=== PATIENT | female | born 1985 | race Caucasian/White ===

== ENCOUNTER 2017-03-23 16:25 | Emergency (ER) | payer BC ==
[2017-03-23 16:31] VITALS: BP 111/81; RESP 16; TEMP 97.8; O2SAT 97
[2017-03-23] MEDS ORDERED: Sodium Chloride 0.9% 1,000 ML IV SCH (17:00)
--- NOTE | 2017-03-23 17:16 | ED PDOC ---
HPI: Chest Pain Time Seen by Provider: 03/23/17 16:36 Chief Complaint (Nursing): Palpitations Chief Complaint (Provider): Palpitations History Per: Patient History/Exam Limitations: no limitations Onset/Duration Of Symptoms: Hrs Additional Complaint(s): Patient is a 31 y/o female who presents to the ED complaining of palpitations that began earlier today. Patient reports she was at home today when she felt acute onset of palpitations. She states she thought it was secondary to dehydration because all she had earlier in the day was fruit and coffee. She reports that she began drinking water, but that she got more anxious and had worsening palpitations prompting her to come in to the ED. Patient denies any chest pain, shortness of breath, fever, recent weight loss/gain, urinary symptoms, or any further symptoms. She reports she experienced a similar episode last week. PCP: Mandy Lopes ([facility]) Past Medical History Reviewed: Historical Data, Nursing Documentation, Vital Signs Vital Signs: Last Vital Signs Temp 97.8 F 03/23/17 16:28 Pulse 170 H 03/23/17 18:57 Resp 16 03/23/17 16:28 BP 111/81 03/23/17 16:28 Pulse Ox 97 03/23/17 18:57 - Medical History PMH: No Chronic Diseases - Surgical History Surgical History: No Surg Hx - Family History Family History: States: No Known Family Hx - Social History Current smoker - smoking cessation education provided: No Ex-Smoker (has not smoked in the last 12 months): No Alcohol: None Drugs: Denies - Allergies Allergies/Adverse Reactions: Allergies Allergy/AdvReac Type Severity Reaction Status Date / Time acetaminophen [From NyQuil] Allergy SHORTNESS Verified 03/23/17 16:32 OF BREATH dextromethorphan Allergy SHORTNESS Verified 03/23/17 16:32 [From NyQuil] OF BREATH doxylamine [From NyQuil] Allergy SHORTNESS Verified 03/23/17 16:32 OF BREATH pseudoephedrine [From NyQuil] Allergy SHORTNESS Verified 03/23/17 16:32 OF BREATH Review of Systems ROS Statement: Except As Marked, All Systems Reviewed And Found Negative Constitutional: Negative for: Fever, Weight loss, Other (Weight gain) Cardiovascular: Positive for: Palpitations. Negative for: Chest Pain Respiratory: Negative for: Shortness of Breath Genitourinary Female: Negative for: Other (Urinary symptoms) Physical Exam - Reviewed Nursing Documentation Reviewed: Yes Vital Signs Reviewed: Yes - Physical Exam Appears: Positive for: No Acute Distress (tearfull, anxious) Head Exam: Positive for: ATRAUMATIC, NORMOCEPHALIC Skin: Positive for: Normal Color, Warm, Dry Eye Exam: Positive for: Normal appearance, EOMI, PERRL Neck: Positive for: Normal, Painless ROM, Supple Cardiovascular/Chest: Positive for: Tachycardia. Negative for: Murmur Respiratory: Positive for: Normal Breath Sounds. Negative for: Respiratory Distress Gastrointestinal/Abdominal: Positive for: Normal Exam, Soft. Negative for: Tenderness Back: Positive for: Normal Inspection. Negative for: L CVA Tenderness, R CVA Tenderness, Vertebral Tenderness Extremity: Positive for: Normal ROM. Negative for: Pedal Edema, Deformity Neurologic/Psych: Positive for: Alert, Oriented (x3). Negative for: Motor/ Sensory Deficits - Laboratory Results Result Diagrams: 03/23/17 17:35 03/23/17 17:35 - ECG ECG Rhythm: Positive for: Normal QRS, Normal ST Segment, Sinus Tachycardia. Negative for: ST/T Changes Rate: 170 O2 Sat by Pulse Oximetry: 97 (RA) Pulse Ox Interpretation: Normal Medical Decision Making Medical Decision Makin:37 Initial Impression: Anxiety Initial Plan: --EKG --CMP --Free T4 --Magnesium --Phosphorous --Thyroid Stimulating Hormone --CBC --D Dimer [COAG] --Chest Two Views X-Ray --Sodium Chloride 0.9% IV 1,000 mls/hr --POC Urine Test 18:14 Chest X-Ray Results FINDINGS: LUNGS: No active pulmonary disease. PLEURA: No significant pleural effusion identified. No pneumothorax apparent. CARDIOVASCULAR: Normal. OSSEOUS STRUCTURES: No significant abnormalities. VISUALIZED UPPER ABDOMEN: Normal. OTHER FINDINGS: None. IMPRESSION: No active disease. Scribe Attestation: Documented by Suleiman Florez, acting as a scribe for Rylee Martinez MD Provider Scribe Attestation: All medical record entries made by the Scribe were at my direction and personally dictated by me. I have reviewed the chart and agree that the record accurately reflects my personal performance of the history, physical exam, medical decision making, and the department course for this patient. I have also personally directed, reviewed, and agree with the discharge instructions and disposition. Poc negative. EKG at 17:00 shows sinus tachycardia at 107bpm. Repeat ekg at 18:01 due to complaint of additional palpitations shows sinus tachycardia at 117bpm no delta wae qtc:[id number]. NO family history. Reports hx of anxiety and reports taking xanax at home Free t4 mildly decreased but tsh WNL which is more consistent wiht hypothyroidism. [id number] negative. labs wnl. Repeat hr:100 still tearful whenever questioned alone but denies HI/SI Disposition - Clinical Impression Clinical Impression: Palpitations, Anxiety - Disposition Disposition: Routine/Home Disposition Time: 18:54 Condition: GOOD Additional Instructions: Follow-up with your PMD within 2 days for further evaluation of your palpitations. You likely need holter monitor. Your t4 is mildly low at 0.62 and should be evaluated (normal tsh 2.46) Return to ED immediately with any worsening symptoms. Forms: [employer] (Arabic)
[2017-03-23 17:25] VITALS: PULSE 170
[2017-03-23 17:47] LABS: BASO % 0.4 % (0.0-2.0); EOS % 0.5 % (0.0-4.0); HEMOGLOBIN 14.7 g/dL (12.0-16.0); LYMPH # 1.3 K/uL (1.0-4.3); LYMPH % 28.5 % (20.0-40.0); MEAN CORPUSCULAR HEMOGLOBIN 28.6 pg (27.0-31.0); MEAN CORPUSCULAR HGB CONC 32.8 g/dL (33.0-37.0); MEAN PLATELET VOLUME 10.9 fl (7.2-11.7); MONO # 0.3 K/uL (0.0-0.8); NEUT # 2.9 K/uL (1.8-7.0); NEUT % 63.6 % (50.0-75.0); RBC 5.13 Mil/uL (3.80-5.20); RED CELL DISTRIBUTION WIDTH 14.2 % (11.5-14.5); WHITE BLOOD COUNT 4.6 K/uL (4.8-10.8)
[2017-03-23 18:01] LABS: ALB/GLOB RATIO 1.4 (1.0-2.1); ALBUMIN 4.8 g/dL (3.5-5.0); ALT/SGPT 31 U/L (9-52); AST/SGOT 23 U/L (14-36); BLOOD UREA NITROGEN 8 mg/dl (7-17); CALCIUM 9.8 mg/dL (8.4-10.2); GFR AFRICAN-AMERICAN > 60; GFR NON-AFRICAN AMERICAN > 60; MAGNESIUM 1.9 MG/DL (1.6-2.3)
--- NOTE | 2017-03-23 18:50 | RAD ---
HISTORY: palpitations COMPARISON: No prior. TECHNIQUE: Chest PA and lateral FINDINGS: LUNGS: No active pulmonary disease. PLEURA: No significant pleural effusion identified. No pneumothorax apparent. CARDIOVASCULAR: Normal. OSSEOUS STRUCTURES: No significant abnormalities. VISUALIZED UPPER ABDOMEN: Normal. OTHER FINDINGS: None. IMPRESSION: No active disease.
--- NOTE | 2017-03-24 11:44 | CARD ---
APPROVED REPORT EKG Measurement Heart [id number] <Conclusion> Sinus tachycardia Nonspecific T wave abnormality Abnormal ECG
== END 2017-03-23 19:25 | disposition home or self-care (01) ==
LOC: H.ER 16:25
DX: R00.2 Palpitations (principal); F41.9 Anxiety disorder, unspecified; Z87.891 Personal history of nicotine dependence
CPT/HCPCS: 71020; 80053; 81025; 83735; 84100; 84439; 84443; 85025; 85378; 93005; 99283; J7040

== ENCOUNTER 2017-04-02 22:44 | Emergency (ER) | payer BC ==
[2017-04-02 22:49] VITALS: O2SAT 98
--- NOTE | 2017-04-02 23:54 | ED PDOC ---
HPI: General Adult Time Seen by Provider: 04/02/17 23:00 Chief Complaint (Nursing): Anxiety Chief Complaint (Provider): anxiety History Per: Patient (31 y/o female here for evaluation of chest pain/ palpitations noted today after feeling anxious [place]. Took 1/2 of xanax for anxiety. Patient states she was thinking about her friend's aunt who was diagnosed with breast cancer and became increasingly anxious that she may have breast cancer. Patient was seen in ED for similar symptoms with negative work up. NO SI/HI. Is not on any medications. ) Past Medical History Reviewed: Historical Data, Nursing Documentation, Vital Signs Vital Signs: Last Vital Signs Temp 98 F 04/02/17 23:55 Pulse 90 04/02/17 23:55 Resp 18 04/02/17 23:55 BP 142/80 04/02/17 23:55 Pulse Ox 98 04/02/17 23:57 - Family History Family History: States: No Known Family Hx - Allergies Allergies/Adverse Reactions: Allergies Allergy/AdvReac Type Severity Reaction Status Date / Time acetaminophen [From NyQuil] Allergy SHORTNESS Verified 03/23/17 16:32 OF BREATH dextromethorphan Allergy SHORTNESS Verified 03/23/17 16:32 [From NyQuil] OF BREATH doxylamine [From NyQuil] Allergy SHORTNESS Verified 03/23/17 16:32 OF BREATH pseudoephedrine [From NyQuil] Allergy SHORTNESS Verified 03/23/17 16:32 OF BREATH Review of Systems ROS Statement: Except As Marked, All Systems Reviewed And Found Negative Physical Exam - Reviewed Nursing Documentation Reviewed: Yes Vital Signs Reviewed: Yes - Physical Exam Appears: Positive for: Well, Non-toxic, No Acute Distress Head Exam: Positive for: ATRAUMATIC, NORMAL INSPECTION, NORMOCEPHALIC Skin: Positive for: Normal Color, Warm, DRY Eye Exam: Positive for: EOMI, Normal appearance, PERRL ENT: Positive for: Normal ENT Inspection Neck: Positive for: Normal, Painless ROM Cardiovascular/Chest: Positive for: Regular Rate, Rhythm, Chest Non Tender (on patient's request, breast exam done. Fibrocystic changes noted. No obvious mass.) Respiratory: Positive for: CNT, Normal Breath Sounds Gastrointestinal/Abdominal: Positive for: Normal Exam, Bowel Sounds, Soft Back: Positive for: Normal Inspection Extremity: Positive for: Normal ROM Neurologic/Psych: Positive for: Alert, Oriented - ECG O2 Sat by Pulse Oximetry: 98 - Progress ED Course And Treament: EKG Sinus tachycardia 112 bpm; no ectopy no acute changes Patient states she feels progressively better in ED. repeat HR 91 Disposition - Clinical Impression Clinical Impression: Anxiety attack - Patient ED Disposition Is Patient to be Admitted: No - Disposition Disposition: Routine/Home Disposition Time: 23:56 Condition: FAIR Instructions: Anxiety (ED) Forms: [employer] (Australian)
[2017-04-02 23:56] VITALS: BP 142/80; PULSE 90; RESP 18; TEMP 98
== END 2017-04-03 00:25 | disposition home or self-care (01) ==
LOC: H.ER 22:44
DX: F41.9 Anxiety disorder, unspecified (principal)